=== PATIENT | female | born 1985 | race Caucasian/White ===

== ENCOUNTER 2018-01-17 15:24 | Emergency (ER) | payer OTHER | END 2018-01-17 18:01 | disposition home or self-care (01) | LOC: FTE 15:24 | DX: H00.011 Hordeolum externum right upper eyelid (principal) | CPT/HCPCS: 99283; Z7502 ==

== ENCOUNTER 2018-03-27 17:03 | Emergency (ER) | payer OTHER ==
[2018-03-27 19:40] LABS: ADD UMIC YES; UR ASCORBIC ACID NEGATIVE (NEGATIVE); UR BACTERIA FEW /HPF (NONE SEEN); UR BILIRUBIN (Dip) NEGATIVE (NEGATIVE); UR BLOOD (Dip) 1+ mg/dL (NEGATIVE); UR CLARITY SLIGHTLY CLOUDY (CLEAR); UR COLOR YELLOW (YELLOW); UR GLUCOSE (Dip) NEGATIVE (NEGATIVE); UR KETONES (Dip) NEGATIVE (NEGATIVE); UR LEUKOCYTE ESTERASE (Dip) 3+ Leu/ul (NEGATIVE); UR NITRITE (Dip) NEGATIVE (NEGATIVE); UR RBC 5 /HPF (0-5); UR SPECIFIC GRAVITY (Dip) 1.015 (1.003-1.030); UR SQUAMOUS EPITHELIAL CELL MODERATE /HPF (FEW); UR TOTAL PROTEIN (Dip) NEGATIVE (NEGATIVE); UR UROBILINOGEN (Dip) NEGATIVE (NEGATIVE); UR WBC 6 /HPF (0-5)
== END 2018-03-27 20:02 | disposition home or self-care (01) ==
LOC: FTE 17:03
DX: N83.201 Unspecified ovarian cyst, right side (principal); N30.90 Cystitis, unspecified without hematuria
CPT/HCPCS: 76830; 76856; 81001; 81025; 99284-25

== ENCOUNTER 2018-07-03 06:34 | Emergency (ER) | payer OTHER ==
[2018-07-03] MEDS: IBUPROFEN 600 MG TAB PO (08:10)
== END 2018-07-03 08:50 | disposition home or self-care (01) ==
LOC: FTE 06:34
DX: R07.82 Intercostal pain (principal)
CPT/HCPCS: 93005; 99283-25

== ENCOUNTER 2018-07-31 16:06 | Emergency (ER) | payer OTHER ==
[2018-07-31 18:24] LABS: URINE BLOOD (Dip) POC 1+ (NEGATIVE); URINE GLUCOSE (Dip) POC Negative (NEGATIVE); URINE KETONES (Dip) POC Negative (NEGATIVE); URINE LEUKOCYTE EST (Dip) POC Trace (NEGATIVE); URINE NITRITE (Dip) POC Negative (NEGATIVE); URINE TOTAL PROTEIN POC Negative (NEGATIVE)
[2018-07-31 18:24] LABS: URINE PH (Dip) POC 5.5 (5.0-8.5)
== END 2018-07-31 20:07 | disposition home or self-care (01) ==
LOC: FTE 16:06
DX: N39.0 Urinary tract infection, site not specified (principal); N89.8 Other specified noninflammatory disorders of vagina
CPT/HCPCS: 81003; 81025; 99283

== ENCOUNTER 2019-02-13 05:45 | Emergency (ER) | payer OTHER ==
[2019-02-13 06:40] LABS: URINE BLOOD (Dip) POC 3+ (NEGATIVE); URINE GLUCOSE (Dip) POC Negative (NEGATIVE); URINE KETONES (Dip) POC Negative (NEGATIVE); URINE LEUKOCYTE EST (Dip) POC 1+ (NEGATIVE); URINE NITRITE (Dip) POC Positive (NEGATIVE); URINE TOTAL PROTEIN POC 2+ (NEGATIVE)
[2019-02-13 07:07] LABS: ADD MAN DIFF? NO
[2019-02-13 07:13] LABS: WHITE BLOOD COUNT 9.5 10^3/ul (4.8-10.8)
[2019-02-13 07:13] LABS: BASOPHILS % 0.4 % (0.0-2.0); EOSINOPHILS # 0.1 10^3/ul (0.0-0.5); EOSINOPHILS % 0.7 % (0.0-7.0); HEMATOCRIT 39.6 % (37.0-47.0); HEMOGLOBIN 13.3 g/dl (12.0-16.0); LYMPHOCYTES # 1.3 10^3/ul (0.8-2.9); LYMPHOCYTES % 13.1 % (15.0-51.0); MEAN CORPUSCULAR HGB CONC 33.6 g/dl (32.0-37.0); MEAN CORPUSCULAR VOLUME 86.5 fl (82.0-101.0); MEAN PLATELET VOLUME 9.8 fl (7.4-10.4); MONOCYTE # 0.5 10^3/ul (0.3-0.9); MONOCYTES % 4.7 % (0.0-11.0); NEUTROPHIL # 7.7 10^3/ul (1.6-7.5); NEUTROPHILS % 80.8 % (39.0-77.0); PLATELET COUNT 292 10^3/UL (140-415); RED BLOOD COUNT 4.58 10^6/ul (4.20-5.40); RED CELL DISTRIBUTION WIDTH 11.8 % (11.5-14.5)
[2019-02-13 07:25] LABS: ADD UMIC YES; UR ASCORBIC ACID NEGATIVE (NEGATIVE); UR BACTERIA FEW /HPF (NONE SEEN); UR BILIRUBIN (Dip) NEGATIVE (NEGATIVE); UR BLOOD (Dip) 3+ mg/dL (NEGATIVE); UR CLARITY CLOUDY (CLEAR); UR COLOR YELLOW (YELLOW); UR GLUCOSE (Dip) NEGATIVE (NEGATIVE); UR KETONES (Dip) NEGATIVE (NEGATIVE); UR LEUKOCYTE ESTERASE (Dip) 3+ Leu/ul (NEGATIVE); UR MUCUS FEW /HPF (NONE SEEN); UR NITRITE (Dip) POSITIVE (NEGATIVE); UR RBC > 182 /HPF (0-5); UR SPECIFIC GRAVITY (Dip) 1.019 (1.003-1.030); UR SQUAMOUS EPITHELIAL CELL FEW /HPF (FEW); UR TOTAL PROTEIN (Dip) 2+ mg/dl (NEGATIVE); UR UROBILINOGEN (Dip) NEGATIVE (NEGATIVE); UR WBC > 182 /HPF (0-5)
[2019-02-13] MEDS: CEFTRIAXONE 1 GM INJ IM (07:29)
[2019-02-13] MEDS: LIDOCAINE 1% (MPF) 5 ML VIAL INJ (07:29)
[2019-02-13 07:38] LABS: ALANINE AMINOTRANSFERASE 20 IU/L (13-69); ALBUMIN/GLOBULIN RATIO 1.14; ALKALINE PHOSPHATASE 82 IU/L (42-121); ANION GAP 10 (5-13); ASPARTATE AMINO TRANSFERASE 24 IU/L (15-46); BILIRUBIN,INDIRECT 0.7 mg/dl (0-1.1); BILIRUBIN,TOTAL 0.7 mg/dl (0.2-1.3); BLOOD UREA NITROGEN 11 mg/dl (7-20); CALCIUM 9.6 mg/dl (8.4-10.2); CARBON DIOXIDE 26 mmol/L (21-31); CHLORIDE 106 mmol/L (97-110); CREATININE 0.53 mg/dl (0.44-1.00); Estimated GFR > 60 mL/min (>60); GLUCOSE 111 mg/dl (70-220); LIPASE 73 U/L (23-300); POTASSIUM 4.2 mmol/L (3.5-5.1); SODIUM 142 mmol/L (135-144); TOTAL PROTEIN 7.5 g/dl (6.1-8.1)
== END 2019-02-13 08:06 | disposition home or self-care (01) ==
LOC: FTE 05:45
DX: N39.0 Urinary tract infection, site not specified (principal)
CPT/HCPCS: 36415; 76830; 76856; 80053; 81001; 81003; 81025; 83690; 85025; 96372; 99285-25

== ENCOUNTER 2019-02-24 20:23 | Emergency (ER) | payer OTHER | END 2019-02-24 22:28 | disposition home or self-care (01) | LOC: FTE 20:23 | DX: K64.4 Residual hemorrhoidal skin tags (principal) | CPT/HCPCS: 99284; Z7502 ==

== ENCOUNTER 2019-06-04 06:41 | Emergency (ER) | payer OTHER ==
[2019-06-04] MEDS: ONDANSETRON (ODT) 4 MG TAB ODT (07:18)
[2019-06-04] MEDS: KETOROLAC 30 MG INJ IM (07:18)
== END 2019-06-04 07:30 | disposition home or self-care (01) ==
LOC: FTE 06:41
DX: R51 Headache (principal); R11.0 Nausea
CPT/HCPCS: 81025; 96372; 99284-25